=== PATIENT | female | born 1950 | race Caucasian/White ===

== ENCOUNTER → 2017-10-03 | Outpatient (CLI) | payer OTHER, MEDICARE ==
[~2017-10-03] VITALS: Ht 154.9 cm; Wt 66.1 kg
[~2017-10-03] MED LIST: ACTEMRA80 MG/4 ML; ATENOLOL 50MG T50 M1 PO; CLARITIN-D 12 H1 TA1 PO; CLARITIN10 M2 PO; EXCEDRIN CAPLE1 EACH PO; EXCEDRIN TENSI1 EACH PO; FUROSEMIDE 20 M20 MG PO; MELOXICAM15 MG PO; METHOTREXATE 22.5 MG PO; MULTIVITAMINS1 EAC7 PO; ORENCIA50 MG/0.4 INJECTION; PROBIOTIC1 EAC2 PO; REMICADE 1100 MG/VIA; REQUIP1 MG PO
--- NOTE | ~2017-10-03 | HPC ---
[facility] [address] [place] [address] PAIN MANAGEMENT CONSULTATION Name: PAT DOMINGUEZ Room #: REG JERZY Arnol.#: [id number] Admission: 10/03/17 Attend Phys: Narinder Linda DO Discharge: Date of : 48 Report #: [id number] THIS REPORT FOR: //name// CC: Narinder Powers MD DATE OF SERVICE: 10/03/2017 CHIEF COMPLAINT: Bilateral knee pain. HISTORY OF PRESENT ILLNESS: As you know, the patient is a 66-year-old female who returns today in followup visit with bilateral knee pain. She indicates pain is aching, constant and sharp, places current pain score 7/10, daily activities 7/10. She states activities, walking, and weightbearing exacerbates symptoms, rest tends to improve pain. She indicates her pain is worse in the morning and progressively improves over the day with activity and then becomes intolerable in the late afternoon evening hours. She has trialed Voltaren gel topical, which has provided no improvement. She is referred back to our clinic to discuss treatment options for bilateral knee pain due to severe osteoarthritis. The patient has been advised by Orthopedics that she needs total knee arthroplasty bilaterally. She is yet to move forward with this type of treatment. ALLERGIES: No known drug allergies. CURRENT MEDICATIONS: Remicade, Claritin-D, Excedrin, multivitamin, ReQuip, meloxicam, Tenormin, Voltaren gel. SOCIAL HISTORY: The patient denies tobacco, alcohol, IV or illicit drug use. She is retired, accompanied by her , present in room today. IMAGING: No imaging of the knees available. PQRS: The patient has known osteoarthritis and rheumatoid arthritis. She provides pain intensity of 7/10. She is not a fall risk, has not had a fall last 3 months. She is on blood thinner in the form of Plavix for which she has continued to take the medication. She has no history of hypertension. She is not on chronic opioids. She has a low opioid risk assessment. Pain impact score 29/70 indicating moderate interference of daily activity. PHYSICAL EXAMINATION: VITAL SIGNS: Blood pressure 126/67, pulse 72, respiratory rate 16 and unlabored. The patient is 100% on room air. Height 5 feet 1 inch tall, weight 145.8 pounds, BMI calculated 27.6. GENERAL: Well-developed, well-nourished, well-hydrated 66-year-old female. She [address] [address] PAIN MANAGEMENT CONSULTATION Name: PAT DOMINGUEZ Room #: REG CLI [facility]#: [id number] Admission: 10/03/17 Attend Phys: Narinder Linda DO Discharge: Date of : 48 Report #: [id number] appears stated age, placing current pain score at 7/10 bilateral knees. HEENT: Normocephalic, atraumatic. Pupils equal, round, reactive to light. Extraocular muscles are intact. EXTREMITIES: Show no clubbing, no cyanosis, no edema. MUSCULOSKELETAL: Lower extremity strength appears symmetrical 5/5. Muscle bulk and tone equal and symmetrical. Weightbearing causes intensification of bilateral knee pain. There is palpatory tenderness over the medial aspect of the left and right knee. Active and passive range of motion of the knees are met with increased pain bilaterally, left greater than right. ASSESSMENT: 1. Bilateral knee pain. 2. Osteoarthritis of the knees bilaterally. 3. Chronic intractable pain. PLAN: The patient has returned today in followup visit with bilateral knee pain. She indicates pain is intensified with activity and weightbearing, improves with rest. She states her pain is exacerbated with rising in the morning, improves with certain activities, but then begins to become intense in the midday to the end of day leading to fairly intense pain that is debilitating. The patient and I discussed the likely etiology of her symptoms. It appears to be osteoarthritic in nature. She does have a known rheumatoid arthritis, but I do not believe that her symptoms currently are rheumatologic in nature. This appears to be more osteoarthritic in nature. The patient has been evaluated by Orthopedic Surgery who has advised total knee arthroplasty. The patient is hopeful to avoid this and has returned to discuss options for treatment. We discussed the following with the patient today. We discussed physical therapy, stretching exercises and weight loss as a treatment option. We discussed medication management to be either topical or oral medication to assist in pain control. This could be done with nonsteroidal anti-inflammatories topically or orally, addition of a very low dose opioid like medication for possible improvement in symptoms. We discussed intraarticular knee injections, though the patient will have to be off her Plavix in preparation of this procedure or surgical options. After reviewing risks and benefits of all proposed treatment options, the patient chose to undergo bilateral knee intraarticular injections. The patient was advised to discontinue Plavix. She is to contact her prescribing physician to confirm she can come off the Plavix. She would need to be off the Plavix for 7 days in preparation for the procedure. If the patient is able to come off the medication, we will have her back next week to undergo bilateral intraarticular knee injections under fluoroscopic guidance. No changes in medication therapy were provided today. The patient chose to trial the injections initially. If this is ineffective, then look towards other [facility] [address] [place] [address] PAIN MANAGEMENT CONSULTATION Name: PAT DOMINGUEZ Room #: REG [facility].#: [id number] Admission: 10/03/17 Attend Phys: Narinder Linda DO Discharge: Date of : 48 Report #: [id number] options. We will see her back in 1 week off the Plavix in preparation for the intraarticular knee injection on the left and right. <ELECTRONICALLY SIGNED> By: Narinder Linda DO 10/16/17 0749 [id number] [id number] Narinder Linda DO /nt
[2017-10-03 09:19] VITALS: BP 126/67
== END ==
LOC: PAIN 06:58
DX: G89.29 Other chronic pain (principal); M17.0 Bilateral primary osteoarthritis of knee

== ENCOUNTER → 2017-10-10 | Outpatient (CLI) | payer OTHER, MEDICARE ==
[~2017-10-10] VITALS: Ht 157.5 cm; Wt 66.0 kg
--- NOTE | ~2017-10-10 | HPC ---
[facility] [place] [address] [place] [address] PAIN MANAGEMENT CONSULTATION Name: PAT DOMINGUEZ Room #: REG JERZY SaraKellyRomeo#: [id number] Admission: 10/10/17 Attend Phys: Narinder Linda DO Discharge: Date of : 48 Report #: [id number] THIS REPORT FOR: //name// CC: Narinder Powers MD DATE OF SERVICE: 10/10/2017 CHIEF COMPLAINT: Bilateral knee pain. HISTORY OF PRESENT ILLNESS: As you know, the patient is a 66-year-old female who suffers from bilateral osteoarthritis of the knees. She apparently has seen orthopedic surgery who advised total knee arthroplasty. The patient has chosen to begin with more conservative route. We saw the patient early 10/03/2017 where she was diagnosed with bilateral knee pain secondary to osteoarthritis and we advised the patient treatment options including topical agents, medication management with consistent nonsteroidal anti-inflammatory, intraarticular knee injections and ultimately surgical options. The patient chose today to undergo bilateral intraarticular knee injections. She has stopped her anticoagulant in preparation for today's procedure. ALLERGIES: No known drug allergies. CURRENT MEDICATIONS: Remicade, Claritin-D, Excedrin, multivitamin, Requip, meloxicam, Tenormin, Voltaren. SOCIAL HISTORY: The patient denies tobacco, alcohol, IV or illicit drug use. She is retired. She is unaccompanied today. PQRS: The patient has known osteoarthritis and rheumatoid arthritis. She has pain intensity today rated at 6/10. She is not a fall risk, has not had a fall in the last 3 months. She is on blood thinners, but has stopped Plavix in preparation for today's procedure. She has no history of hypertension. She is not on chronic opioids. She is a low risk for opioid addiction. PHYSICAL EXAMINATION: VITAL SIGNS: Blood pressure 132/69, pulse 77, respiratory rate 16, unlabored. The patient is 100% on room air. Height 5 feet 2 inches tall, weight 145.6 pounds, BMI calculated 26.6. GENERAL: Well-developed, well-nourished, well-hydrated 66-year-old female appearing stated age, pain is rated around 6/10 bilateral knees. HEENT: Normocephalic, atraumatic. Pupils are equal, round, reactive to light. EXTREMITIES: Show no clubbing, no cyanosis, no edema. MUSCULOSKELETAL: Lower extremity strength appears equal and symmetrical 5/5, muscle bulk and tone equal and symmetrical. Weightbearing again causes [facility] [address] [place] [address] PAIN MANAGEMENT CONSULTATION Name: PAT DOMINGUEZ Room #: REG [facility]#: [id number] Admission: 10/10/17 Attend Phys: Narinder Linda DO Discharge: Date of : 48 Report #: [id number] intensification of pain with bilateral knees. Active and passive range of motion bilateral knees met with increasing pain, left greater than right. ASSESSMENT: 1. Bilateral knee pain. 2. Osteoarthritis of bilateral knees. 3. Chronic intractable pain. PLAN: 1. The patient returns today in followup visit having discontinued her Plavix in preparation for bilateral intraarticular knee injections. The patient has been advised of the risks and the benefits of this procedure. These risks include but not necessarily limited to bleeding, bruising, infection, worsening pain, no relief of pain, also risk of temporary or permanent muscle weakness, temporary or permanent nerve damage, joint destruction and . The patient states understood and wished to proceed. 2. No medication changes made at today's visit. The patient will restart her Plavix starting today and continue the medication as directed. 3. We will see the patient back in followup visit on an as needed basis to address bilateral knee pain. PROCEDURE NOTE: DESCRIPTION OF PROCEDURE: Bilateral intra-articular knee injections under fluoroscopic guidance. After obtaining written consent, the patient was taken back to fluoroscopy suite, placed in a supine position. The image intensifier was then brought into position over the top of the patient's left knee and AP imaging was obtained. The area was marked and then sterilely prepped on the lateral portion of the knee with chlorhexidine. A 27 gauge 1-1/4 inch needle was then used to anesthetize skin and subcutaneous tissue on the lateral portion of the knee. This was done with a 27-gauge 1-1/4 inch needle with 3 mL of 1% lidocaine. A 25-gauge 2-inch needle was then advanced under fluoroscopic guidance into the left knee joint using a lateral approach. Needle entry was met with no increase in overall pain. After negative aspiration for heme, 0.2 mL of Omnipaque was injected demonstrating excellent left knee arthrogram. After negative aspiration for heme, 3 mL of a solution containing 1 mL 40 mg per mL, 40 mg total triamcinolone, 2 mL of bupivacaine 0.5% injected slowly. Needle retracted fdc, flushed with 1 mL of 1% lidocaine and removed. Sterile bandage placed over injection site. Our attention was then directed to the right knee. Image intensifier was then brought into position over the right knee and AP imaging was obtained. The lateral portion of the knee was then marked and then prepped with chlorhexidine [address] [address] PAIN MANAGEMENT CONSULTATION Name: PAT DOMINGUEZ Room #: REG JERZY Singleton#: [id number] Admission: 10/10/17 Attend Phys: Narinder Linda DO Discharge: Date of : 48 Report #: [id number] sterilely. A 27-gauge 1-1/4 inch needle was then used to anesthetize skin and subcutaneous tissue with 3 mL of 1% lidocaine. A 25-gauge 2-inch needle was advanced under fluoroscopic guidance into the right knee utilizing a lateral approach. Knee was entered without complication or pain generation. After negative aspiration for heme, 0.2 mL of Omnipaque was injected demonstrating excellent right knee arthrogram. After negative aspiration for heme, 3 mL of a solution containing 1 mL 40 mg per mL, 40 mg total triamcinolone, 2 mL of bupivacaine 0.5% injected slowly. Needle retracted fdc, flushed with 1 mL of 1% lidocaine and removed. Sterile bandage placed over injection site. The patient tolerated the bilateral procedure well. No apparent complications. After meeting our discharge criteria, the patient was discharged home. <ELECTRONICALLY SIGNED> By: Narinder Linda DO 10/16/17 0750 1217 [id number] Narinder Linda DO /nt
[2017-10-10 09:01] VITALS: BP 132/69
== END | disposition home or self-care (01) ==
LOC: PAIN 06:55
DX: G89.29 Other chronic pain (principal); M17.0 Bilateral primary osteoarthritis of knee; Z79.899 Other long term (current) drug therapy; Z79.01 Long term (current) use of anticoagulants; Z98.890 Other specified postprocedural states

== ENCOUNTER → 2017-10-29 | Outpatient (CLI) | payer OTHER, MEDICARE | LOC: HYPER 10-25 10:26 | DX: I70.245 Atherosclerosis of native arteries of left leg with ulceration of other part of foot (principal); L97.521 Non-pressure chronic ulcer of other part of left foot limited to breakdown of skin; I10 Essential (primary) hypertension; M06.9 Rheumatoid arthritis, unspecified; Z90.710 Acquired absence of both cervix and uterus ==

== ENCOUNTER → 2017-11-15 | Outpatient (CLI) | payer OTHER, MEDICARE | LOC: HYPER 06:44 | DX: I70.245 Atherosclerosis of native arteries of left leg with ulceration of other part of foot (principal); L97.521 Non-pressure chronic ulcer of other part of left foot limited to breakdown of skin; I10 Essential (primary) hypertension; I73.00 Raynaud's syndrome without gangrene; M06.9 Rheumatoid arthritis, unspecified; Z90.710 Acquired absence of both cervix and uterus ==

== ENCOUNTER → 2017-11-28 | Outpatient (CLI) | payer OTHER, MEDICARE | LOC: HYPER 07:02 | DX: I70.245 Atherosclerosis of native arteries of left leg with ulceration of other part of foot (principal); L97.521 Non-pressure chronic ulcer of other part of left foot limited to breakdown of skin; I10 Essential (primary) hypertension; I73.00 Raynaud's syndrome without gangrene; M06.9 Rheumatoid arthritis, unspecified ==

== ENCOUNTER → 2017-12-12 | Outpatient (CLI) | payer OTHER, MEDICARE | LOC: HYPER 06:50 | DX: I70.245 Atherosclerosis of native arteries of left leg with ulceration of other part of foot (principal); L97.521 Non-pressure chronic ulcer of other part of left foot limited to breakdown of skin; I73.00 Raynaud's syndrome without gangrene; I10 Essential (primary) hypertension; M06.9 Rheumatoid arthritis, unspecified ==

== ENCOUNTER → 2018-05-29 | Outpatient (CLI) | payer OTHER, MEDICARE ==
[~2018-05-29] VITALS: Ht 157.5 cm; Wt 65.2 kg
[~2018-05-29] MED LIST changes: +AMBIEN 5 MG TABL5 M1 PO; +BACLOFEN 10MG T10 MG PO; +TRAMADOL 50 MG50 MG PO
--- NOTE | ~2018-05-29 | HPC ---
[facility] [address] [place] [address] PAIN MANAGEMENT CONSULTATION Name: PAT DOMINGUEZ [id number] Admission: 05/29/18 Attend Phys: Narinder Linda DO Discharge: Date of : 48 Report #: [id number] THIS REPORT FOR: //name// CC: Dr. Jorge Powers MD DATE OF SERVICE: 05/29/2018 CHIEF COMPLAINT: Left calf cramping, bilateral knee pain. HISTORY OF PRESENT ILLNESS: As you know, the patient is a 67-year-old female who returns today in followup visit with left gastrocnemius cramping located in the upper portion of the gastrocnemius and popliteal area. The patient had bilateral knee replacements at the end of 12/2017, but progressively had worsening of this cramping. She has been referred to our clinic to discuss options for treatment for this cramping secondary to changes made by Orthopedics in regards to total knee arthroplasties. The patient indicates today pain is chronic, describes the pain as aching, sharp and cramping, exacerbated in the evening and with activities, improves with rest and heat. She denies any injuries or traumas other than the recent surgeries to address bilateral knee osteoarthritis. ALLERGIES: No known drug allergies. CURRENT MEDICATIONS: Atenolol, ropinirole, multivitamin, acetaminophen, Claritin-D, Orencia, lactobacillus, furosemide, zolpidem and tramadol. SOCIAL HISTORY: The patient denies tobacco, alcohol, IV or illicit drug use. She is accompanied by her , present in room today. IMAGING: No new imaging available. PQRS: The patient has known arthritic changes of the low back, bilateral hips and prior knees. She does have a history of rheumatoid arthritis. She is placing pain intensity, 3/10. She is a fall risk, but has not had a fall in the last 3 months. She is not on blood thinner. She is not treated for hypertension. She is not on opioid. She has a low opiate addiction potential. She is placing pain impact score 54/70, severe interference of daily activities secondary to pain. PHYSICAL EXAMINATION: VITAL SIGNS: Blood pressure 117/65, pulse is 84, respiratory rate 16 and unlabored. The patient is 100% on room air. Height 5 feet 2 inches tall, weight 143.8 pounds, BMI calculated 26.3. [place] [address] PAIN MANAGEMENT CONSULTATION Name: PAT DOMINGUEZ Room #: REG PRESTONUma Singleton#: [id number] Admission: 05/29/18 Attend Phys: Narinder Linda DO Discharge: Date of : 48 Report #: [id number] GENERAL: Well-developed, well-nourished, well-hydrated 67-year-old female, appearing her stated age. She is in no acute distress, awake, alert and oriented x 3, pain is rated at 3/10. HEENT: Normocephalic, atraumatic. Pupils equal, round, reactive to light. EXTREMITIES: Show no clubbing, no cyanosis, no edema. MUSCULOSKELETAL: Well healed surgical scars over the bilateral knees noted today. There is some palpatory tenderness over the upper portion of the gastrocnemius, radiating into the popliteal fossa. No noted cramping or spasming of the muscles during palpation today. Gait mildly antalgic, favoring left lower extremity over right. ASSESSMENT: 1. Myofascial pain. 2. Chronic intractable pain. PLAN: 1. Based on today's physical exam and history the patient has provided, the description the patient uses in regards to pain as well as location of symptoms, it appears the patient is suffering from myofascial symptoms generated from the gastrocnemius or possibly even the soleus muscle on the left. This does appear to be related to her total knee arthroplasty. I am unable to elicit any neuropathic component of the patient's symptoms, her symptoms are myofascial in origin. We discussed this with the patient today. Treatment options would include physical therapy, stretching exercises as well as possibly acupuncture therapy. Certainly medication management with muscle relaxants may be beneficial. Requip will not be effective for this issue as this is not related to restless leg syndrome. She has tried increasing this medication with no benefit. Other options would include return to see Orthopedics to discuss her condition further and determine if further imaging is necessary to determine if there is some potential complication. After reviewing the risks and benefits of all proposed treatment options, the patient chose to begin with medication management. 2. The patient will be started on baclofen 10 mg dose 1 tab p.o. b.i.d. This was provided for muscle spasming. She is to watch for side effects of somnolence, decreased mental acuity, disorientation, confusion, mental slowing as well as a potential muscle weakness. We have given the patient #60 tablets, 2 refills. She can follow up with her PCP or her office nurse if she sees them next as this is not a controlled substance and will not require significant changes in medication management or specialized licensure. 3. We will see the patient back in followup visit on an as-needed basis to address ongoing myofascial symptoms. We will be available to see her on an as-needed basis. <ELECTRONICALLY SIGNED> By: Narinder Linda DO 06/04/18 1520 0740 08 Narinder Linda DO /omar
[2018-05-29 08:58] VITALS: BP 117/65
== END ==
LOC: PAIN 08:33
DX: G89.29 Other chronic pain (principal); M79.662 Pain in left lower leg; Z96.653 Presence of artificial knee joint, bilateral; Z79.899 Other long term (current) drug therapy

== ENCOUNTER → 2021-05-10 | Outpatient (CLI) | payer OTHER, MEDICARE ==
[~2021-05-10] VITALS: Ht 157.5 cm; Wt 67.6 kg
[~2021-05-10] MED LIST changes: +FOLIC D3 94.381 EACH PO; +LEFLUNOMIDE 1010 MG PO; +MEDROLDOSEPACK PO; +NORCO5 PO; +OXYMORPHONE HCL10 M1 PO; +OXYMORPHONE HCL5 MG PO; +SIMPONI AR50 MG/4 ML IV; +VITAMIN C500 M1 PO
[2021-05-10 14:35] VITALS: BP 148/74
--- NOTE | 2021-05-10 15:00 | NUR ---
Pain Clinic Assessment: 1. History of Osteoarthritis: UNKNOWN History of Rheumatoid Arthritis: HANDS ANKLES FEET KNEES ELBOWS 2. Height: 5 ft. 2 in. 157.5 cm. Weight: 149.0 lb. oz. 67.586 kg. Patient's BMI: 27.2 3. Vital Signs: BP: 148/74 Pulse: 75 Resp: 16 Temp: 02 Sat: 100 ECG Mon: 4. Pain Intensity: 6 5. Fall Risk: Dizziness: N Needs help standing or walking: N Fallen in the last 3 months: N Fall risk comments: 6. Patient on Blood Thinner: None 7. History of Hypertension: N 8. Opioid Therapy greater than 6 weeks: N Opiate Contract Signed: 9. Risk Assessment Tool Provided: 0-LOW 10. Functional Assessment Tool: 50/70 11. Recreational Drug Use: Never Drug Type: Tobacco Use: Never Smoker Tobacco Type: Amount or Packs/day: How Many Years: Alcohol Use: No Frequency: Quant:
--- NOTE | 2021-05-11 08:15 | HPC ---
[facility] [address] [place] [address] PAIN MANAGEMENT CONSULTATION Name: PAT DOMINGUEZ Room #: REG [facility] INCURABLESRomeoKellyRomeo#: [id number] Admission: 05/10/21 Attend Phys: Narinder Linda DO Discharge: Date of : 48 Report #: [id number] THIS REPORT FOR: cc: Bakari Powers MD, Mark S. MD Johnson, James E. DO ~ cc: Dr. Chriss Talavera DATE OF SERVICE: 05/10/2021 REFERRING PHYSICIAN: Dr. Chriss Talavera, Neurosurgeon CHIEF COMPLAINT: Neck pain, left upper extremity pain and paresthesias, left upper back pain. HISTORY OF PRESENT ILLNESS: As you know, the patient is a pleasant 70-year-old female who reports a longstanding history of left scapular pain, left arm pain with paresthesias. She states the symptoms began in mid summer 2020 without inciting injury or traumas. She was seen by orthopedics. She felt that her symptoms may be related to shoulder issues: She underwent left shoulder x-ray imaging, which were negative. She was then sent for x-ray imaging of the cervical spine after she was complaining of pins and needle sensation in the left upper extremity. She has been diagnosed with cervical radiculopathy and then referred on to Neurosurgery. The patient was seen by Neurosurgery and advised that surgical options could be entertained to address the findings at C5-C6 and C6-C7 level, but it was determined that the patient should trial conservative treatment initially. She was subsequently then referred on to our clinic to discuss treatment options. She has now started physical therapy. She takes tramadol p.r.n., at bedtime. The patient reports today pain is constant. She describes the pain as a burning, shooting, aching and stabbing sensation. Places current pain score 6/10, daily average of 5/10, worst pain has been is 8/10. The patient states the pain is exacerbated with rotating her neck to the left and utilizing a left upper extremity. Nothing tends to improve pain. She has been referred to our service. Discussed cervical epidural injections under fluoroscopic guidance. ALLERGIES: No known drug allergies. CURRENT MEDICATIONS: Vitamin D3, ascorbic acid, Simponi, tramadol, furosemide, Claritin, ropinirole, atenolol. SOCIAL HISTORY: The patient denies tobacco, alcohol or IV or illicit drug use. She is accompanied by her present in room today. IMAGING: MRI cervical spine shows reversal of cervical lordosis, C4-C5 vertebral bodies are fused. There is retrolisthesis of C5 on C6 measuring 2 [place] [address] PAIN MANAGEMENT CONSULTATION Name: PAT DOMINGUEZ Room #: REG [facility] INCURABLESJulito#: [id number] Admission: 05/10/21 Attend Phys: Narinder Linda DO Discharge: Date of : 48 Report #: [id number] There is anterolisthesis of C7 on T1 measuring 2 mm. Minimal endplate edema is noted at C5-C6 and C6-C7. There is high-grade foraminal stenosis at C5-C6 with thecal sac reduced to 6 mm at C6-C7. There is also buckling of the ligamentum flavum, moderate central canal stenosis, foraminal narrowing, that is moderate in nature and compression of the canal to 7 mm. PQRS: The patient has known arthritic changes of cervical spine, lumbar spine, bilateral hips and knees. She is treated for rheumatoid arthritis with IV infusions. She is placing pain intensity 6/10. She is not a fall risk, has not had a fall in last 3 months. She is not on blood thinners nor is she treated for hypertension. She is on opioid like medications, has a low opioid addiction potential. Pain impact is 50/70, severe interference of daily activities secondary to pain. PHYSICAL EXAMINATION: VITAL SIGNS: Blood pressure 140/74, pulse 75, respiratory rate 16 and unlabored. The patient is 100% on room air. Height 5 feet 2 inches tall, weight 149 pounds, BMI calculated 27.2. GENERAL: Well-developed, well-nourished, well-hydrated 70-year-old female appearing stated age, pain is rated today 6/10. HEENT: Normocephalic, atraumatic. Pupils equal, round and responsive. Speech is fluent. She is wearing a mask in compliance with COVID-19 regulations. LUNGS: Clear. She is able to complete sentences. There is no audible wheezing, rhonchi or rales. EXTREMITIES: Show no clubbing, no cyanosis and no edema. MUSCULOSKELETAL: Upper extremity strength appears symmetrical. Muscle bulk and tone is symmetrical in upper extremities. Deep tendon reflexes are increased at the biceps bilaterally. Babinski is negative. No clonus. Cervical provocation testing is met with increasing pain. Spurling's test is positive for left, negative for right. She is intact to light touch from C5 through T1 dermatomes. Tinel sign is negative. Phalen sign is negative. Lhermitte's phenomenon is negative. ASSESSMENT: 1. Cervical radiculopathy. 2. Severe neural foraminal stenosis of the cervical spine. 3. Cervical spinal stenosis. 4. Cervical myelopathy. 5. Chronic intractable pain. PLAN: 1. Based on today's physical exam and history the patient has provided, the description the patient uses in regards to pain as well as the descriptors she uses in regards to symptoms, likely source of the patient's pain is cervical radiculopathy. The patient has seen Neurosurgery and they have advised the patient to trial conservative treatment initially. If these are then [facility] [address] [place] [address] PAIN MANAGEMENT CONSULTATION Name: ANGELICASHANNANELENI Dawkins Room #: REG JERZY Singleton#: [id number] Admission: 05/10/21 Attend Phys: Narinder Linda DO Discharge: Date of : 48 Report #: [id number] unsuccessful in alleviating symptoms, surgical options could be entertained. The patient was to begin physical therapy this Sunday. She has not started the physical program to date. She was advised to delay undergoing the epidural injection first. If this is unsuccessful, then moving towards physical therapy. The patient and I also discussed the other treatment options we have to address cervical radiculopathy. Following was discussed with the patient today. We discussed the physical therapy, stretching exercises, traction techniques for which she will initiate treatment Sunday. We discussed suggestions and medication management to add neuropathic medications such as amitriptyline, nortriptyline, Cymbalta, Lyrica or gabapentin. We discussed cervical epidural injections under fluoroscopic guidance. We also discussed surgical options with the patient. After reviewing risks and benefits of all proposed treatment options, the patient chose to begin with a cervical epidural injection under fluoroscopic guidance. 2. The patient has been advised risks and benefits of a cervical epidural injection. These risks include but are not necessarily limited to bleeding, bruising, infection, worsening of pain, no relief of pain, temporary or permanent muscle weakness, temporary or permanent nerve damage, possible paralysis, post-dural puncture headache, paralysis, and . The patient states she understood and wished to proceed. 3. The patient was provided a prescription of Medrol Dosepak. She will begin the Dosepak starting tomorrow. The Dosepak was sent to the local pharmacy. I would not recommend that she start the medication until tomorrow morning and follow directions for taking that medication. 4. We have provided the patient with a short prescription of hydrocodone/acetaminophen 5/325 one tab p.o. q. 8 hours p.r.n. for pain and given the patient #30 tablets. These were sent to local pharmacy. The patient was advised to watch for side effects with this use including somnolence, decreased mental acuity, disorientation, confusion, mental slowing and constipation. If she notes these side effects, discontinue immediately. 5. The patient did not tolerate the cervical epidural injection to any great degree. We were only able to obtain about 50% injectate before the patient's pain intensified in her recurrent and constant distribution of symptoms consistent with the neuroforaminal stenosis and central canal stenosis noted. We contacted the patient's neurosurgeon, Dr. Chriss Talavera and discussed that with Dr. Talavera. He has recommended the patient see if her symptoms do improve with the injection that we were able to obtain. If this is not successful, then he would be more than willing to see the patient back in followup visit to discuss surgical options more rapidly. 6. We wish to thank Dr. Talavera for the opportunity to see the patient in consultation. We are hopeful the patient will see good benefit with the injection provided today. We will keep you apprised of response to treatment. Again, we wish to thank you for the opportunity to see the patient in consultation. [facility] [address] [place] [address] PAIN MANAGEMENT CONSULTATION Name: PAT DOMINGUEZ Room #: REG JERZY Ambrose#: [id number] Admission: 05/10/21 Attend Phys: Narinder Linda DO Discharge: Date of : 48 Report #: [id number] DESCRIPTION OF PROCEDURE: C7-T1 cervical epidural steroid injection under fluoroscopic guidance. After obtaining written consent, the patient was taken back to fluoroscopy suite, placed in prone position with separate pillows under chest and forehead to decrease cervical lordosis. Skin overlying the cervical area then prepped and draped in aseptic fashion. C7-T1 cervical interspace was identified by AP fluoroscopy. Skin and subcutaneous tissue overlying target site of injection was then anesthetized with 3 mL 1% lidocaine. A 20 gauge 3-1/2 inch Tuohy needle was advanced under fluoroscopic guidance towards the epidural space using a midline approach. Epidural space identified using loss of resistance to air technique. After negative aspiration for heme or cerebrospinal fluid, 1 mL of Omnipaque injected. A cervical epidurogram was confirmed using both AP and oblique fluoroscopy. After negative aspiration for heme or cerebrospinal fluid, 2 mL of solution containing 2 mL 40 mg per mL 80 mg total triamcinolone and 2 mL of lidocaine 1% was injected slowly. The patient had acute onset of pain along the distribution of her symptoms have been present with intensification of the neck and upper back pain where her symptoms have been most prevalent. She was unable to tolerate the complete injection. We discontinued with 50% of the injectate being provided. Needle was removed and sterile bandage was placed over injection site. The patient was noted to be able to move all 4 extremities after the procedure. She had pain, but no paresthesias. 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 The patient was given medications to assist in pain control as she recovers from the procedure today. Those medications were sent to local pharmacy. After meeting our discharge criteria, the patient was then discharged home. <ELECTRONICALLY SIGNED> By: Narinder Linda DO 05/11/21 [id number] Narinder iLnda DO /nt
== END | disposition home or self-care (01) ==
LOC: PAIN 13:40
PROVIDERS: ATTEND Anesthesiology Pain Medicine
DX: M54.12 Radiculopathy, cervical region (principal); M48.061 Spinal stenosis, lumbar region without neurogenic claudication; M48.02 Spinal stenosis, cervical region; G89.29 Other chronic pain; M19.90 Unspecified osteoarthritis, unspecified site; M06.9 Rheumatoid arthritis, unspecified; G43.909 Migraine, unspecified, not intractable, without status migrainosus; Z98.890 Other specified postprocedural states; Z79.899 Other long term (current) drug therapy; Z87.19 Personal history of other diseases of the digestive system; Z88.8 Allergy status to other drugs, medicaments and biological substances